=== PATIENT | male | born 1995 | race African-American/Black ===

== ENCOUNTER 2022-11-23 19:07 | Emergency (ER) | payer BC ==
--- NOTE | 2022-11-23 19:42 | EDPHYS ---
Physician Documentation [facility] Name: Pro Ng Age: 26 yrs Sex: Male : 1995 Arrival Date: 11/23/2022 Time: 19:07 Bed IW10 Private MD: ED Physician Dayo Reyez HPI: 11/23 19:37 This 26 yrs old Black Male presents to ER via Unassigned with complaints of Ear Problem.cp 19:37 Onset: The symptoms/episode began/occurred yesterday. cp 19:37 The patient presents with hearing loss, partial, discomfort. The complaints affect the cp left ear. Associated signs and symptoms: The patient has no apparent associated signs or symptoms. Historical: - Allergies: 21:05 No Known Allergies; kd3 - Immunization history:: Adult Immunizations up to date. - Social history:: Smoking status: unknown. ROS: 19:38 Constitutional: Negative for fever, poor PO intake. cp 19:38 ENT: Positive for ear pain, hearing loss, Negative for drainage from ear(s), sore throat, difficulty swallowing, difficulty handling secretions. 19:38 Respiratory: Negative for cough, shortness of breath, wheezing. 19:38 Abdomen/GI: Negative for abdominal pain, nausea, vomiting, and diarrhea. 19:38 Skin: Negative for cellulitis, rash. 19:38 Neuro: Negative for altered mental status, headache, weakness. 19:38 All other systems are negative. Exam: 19:39 Head/Face: Normocephalic, atraumatic. cp 19:39 Constitutional: The patient appears in no acute distress, alert, awake, non-toxic, well developed, well nourished. 19:39 Eyes: Periorbital structures: appear normal, Conjunctiva: normal, no exudate, no injection, Sclera: no appreciated abnormality, Lids and lashes: appear normal, bilaterally. 19:39 ENT: External ear(s): are unremarkable, Ear canal(s): cerumen impaction, that is moderate, occluding the left ear canal, erythema, is not appreciated, purulent discharge, is not appreciated, TM's: not visable, because of cerumen, Examination of the other ear shows no obvious abnormality, Nose: is normal, Mouth: Lips: moist, Oral mucosa: pink and intact, moist, Posterior pharynx: is normal, airway is patent, no erythema, no exudate. 19:39 Neck: ROM/movement: is normal, is supple, without pain, no range of motions limitations, Lymph nodes: no appreciated lymphadenopathy. 19:39 Chest/axilla: Inspection: normal. 19:39 Respiratory: the patient does not display signs of respiratory distress. 19:39 Skin: cellulitis, is not appreciated, no rash present. MDM: 19:41 Patient medically screened. cp 19:41 Data reviewed: vital signs, nurses notes. cp 19:41 Counseling: I had a detailed discussion with the patient and/or guardian regarding: the cp historical points, exam findings, and any diagnostic results supporting the discharge/admit diagnosis, to return to the emergency department if symptoms worsen or persist or if there are any questions or concerns that arise at home. Administered Medications: No medications were administered Disposition Summary: 11/23/22 19:41 Discharge Ordered Location: Home cp Problem: new cp Symptoms: have improved cp Condition: Stable cp Diagnosis - Impacted cerumen, left ear cp Followup: cp - With: Yolis Colmenares MD - When: 2 - 3 days - Reason: Worsening of condition Discharge Instructions: - Discharge Summary Sheet cp - Earwax Buildup, Adult cp - Ear Drops, Adult cp - Ear Irrigation cp Forms: - Medication Reconciliation Form cp - Thank You Letter cp - Antibiotic Education cp - Prescription Opioid Use cp Signatures: Reyes Kelly PA PA cp Linda Hassan, RN RN kd3
--- NOTE | 2022-11-23 21:07 | ER ---
Nurse's Notes [facility] Name: Pro Ng Age: 26 yrs Sex: Male : 1995 Arrival Date: 11/23/2022 Time: 19:07 Bed IW10 Private MD: Diagnosis: Impacted cerumen, left ear Presentation: 11/23 21:05 Chief complaint: Patient states: My left ear hurts. Coronavirus screen: Vaccine status: kd3 Patient reports being unvaccinated. Ebola Screen: No symptoms or risks identified at this time. Initial Sepsis Screen: Does the patient meet any 2 criteria? No. Patient's initial sepsis screen is negative. Does the patient have a suspected source of infection? No. Patient's initial sepsis screen is negative. Risk Assessment: Do you want to hurt yourself or someone else? Patient reports no desire to harm self or others. Onset of symptoms was November 23, 2022 at 21:05. 21:05 Method Of Arrival: Ambulatory kd3 21:05 Acuity: CANDE 5 kd3 Triage Assessment: 21:05 General: Appears uncomfortable, Behavior is calm, cooperative. Pain: Complains of pain kd3 in left ear. Historical: - Allergies: 21:05 No Known Allergies; kd3 - Immunization history:: Adult Immunizations up to date. - Social history:: Smoking status: unknown. ED Course: 19:11 Patient arrived in ED. ja2 19:15 Reyes Kelly PA is PHCP. cp 19:15 Dayo Reyez MD is Attending Physician. cp 19:41 Yolis Colmenares MD is Referral Physician. cp 21:05 Triage completed. kd3 21:05 Arm band placed on right wrist. kd3 Administered Medications: No medications were administered Outcome: 19:41 Discharge ordered by . cp 21:06 Patient left the ED. kd3 Signatures: Reyes Kelly PA PA cp Alexander, Jessica ja2 Linda Hassan RN RN kd3
== END 2022-11-23 21:06 | disposition home or self-care (01) ==
LOC: ER 19:07
DX: H61.22 Impacted cerumen, left ear (principal)
CPT/HCPCS: 99281